=== PATIENT | male | born 2005 | race Caucasian/White ===

== ENCOUNTER 2023-01-11 20:40 | Emergency (ER) | payer OTHER, SELFPAY ==
[2023-01-11 20:49] VITALS: BP 111/72; PULSE 90; RESP 14; TEMP 36.8; O2SAT 99; BMI 22.7
--- NOTE | 2023-01-11 21:01 | ED.GENADULT ---
HPI - General Adult General Chief complaint: Psychiatric Problem/Disorder Stated complaint: Mental health Time Seen by Provider: 01/11/23 21:01 History of Present Illness HPI narrative: Pt brought here for eval by Mom for mental health. Mom found patient in bathtub at home with clothes on. Is being treated for depression and anxiety. Denies SI/HI, SIB. Mom denies hx of SIB, inpatient psych tx. 17-year-old accompanied by mom to the emergency department with concern of unusual behavior. Was found by mom in the bathtub with his clothes on. I question more about this event and does admit to more feelings of misery later today. Did ultimately ache can see why he got into the warm water with his clothes on but does admit that the sound of the water with soothing in he just did not want to take his clothes off. Does not feel that he wanted to . He does admit generally to be nice to shrink and be semi in visible. Has never engaged in self-harm behavior. Says has been feeling sad and diagnosed with depression and some anxiety over the last couple of years. Been treated for the last year and a half. Does have regular therapy visits on Tuesday and would be seeing his usual therapist tomorrow at [facility]. Also has a psychiatrist he says. Does have a job at [employer] which he enjoys well enough other than the occasional rude (my word) person. Denies any command hallucinations or any auditory or visual hallucinations otherwise. 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 Does enjoy playing video games. Feels he gets good sleep not staying up late playing games or other.f Related Data Home Medications Medication Instructions Recorded Confirmed escitalopram oxalate 10 mg tablet 10 mg PO DAILY 01/11/23 01/11/23 Allergies Allergy/AdvReac Type Severity Reaction Status Date / Time No Known Drug Allergies Allergy Verified 01/11/23 20:48 Review of Systems Status of ROS: Reports: 6 or more systems reviewed and unremarkable except as noted in History and below [facility] Social History Smoking Status: Never smoker How often do you have a drink containing alcohol: never AUDIT-C Alcohol total score: 0 Non-prescribed substance use: denies use Exam Narrative: Exam Narrative: Hiding under a large black hoodie. Turned away from me. Does turn to look in my direction but never really makes eye contact. Weeks worth of stubble. Long here little disheveled. Picking at his hospital band. Answers slowly and methodically questions. Limited. Mood is depressed and affect congruent. No evidence of self-harm. Increasingly conversant over time of interview. Const: Vital Signs, click to edit/add: Vital Signs - 24 hr 01/11/23 20:49 Temperature 98.2 F Pulse Rate [Pulse Oximeter] 90 Respiratory Rate 14 Blood Pressure [Ri ght Upper Arm] 111/72 Pulse Oximetry 99 Oxygen Delivery Me thod Room Air Documenting provider has reviewed patient's vital signs: yes Course Vital Signs Vital signs: Initial Vital Signs Temperature 98.2 F 01/11/23 20:49 Temperature Source Temporal Artery Scan 01/11/23 20:49 Pulse Rate 90 01/11/23 20:49 Pulse Rhythm Regular 01/11/23 20:49 Respiratory Rate 14 01/11/23 20:49 Blood Pressure 111/72 01/11/23 20:49 Blood Pressure Mean 85 01/11/23 20:49 Blood Pressure Position Sitting 01/11/23 20:49 Pulse Oximetry 99 01/11/23 20:49 Oxygen Delivery Method Room Air 01/11/23 20:49 Vital Signs Temperature 98.2 F 01/11/23 20:49 Pulse Rate 90 01/11/23 20:49 Respiratory Rate 14 01/11/23 20:49 Blood Pressure 111/72 01/11/23 20:49 Pulse Oximetry 99 01/11/23 20:49 Oxygen Delivery Method Room Air 01/11/23 20:49 Temperature 98.2 F 01/11/23 20:49 Pulse Rate 90 01/11/23 20:49 Respiratory Rate 14 01/11/23 20:49 Blood Pressure 111/72 01/11/23 20:49 Pulse Oximetry 99 01/11/23 20:49 Oxygen Delivery Method Room Air 01/11/23 20:49 Medical Decision Making MDM Narrative Medical decision making narrative: I did offer dec assessment. Might be beneficial to talk to somebody else mom in agreement. I do not think is suicidal nor particularly interested in self-harm. May be undiagnosed on the spectrum. DEC ([facility]) affirms safe for discharge also reassured that has close follow-up cares. See patient discharge plan Discharge Plan Discharge Clinical Impression: Depression Patient Disposition: Home w/ Parent or Adult Condition: Improved Additional Instructions: Thanks for talking with us here tonight. Remember to keep talking with your parents; they want to help. Baths are nice wait to relax. Please make that appointment tomorrow with your therapist. Think about planning something fun to do this coming week with your parents, maybe friends. If after talking to your therapist, psychiatrist, parents you might yet be feeling unsafe, please return to the emergency department. Prescriptions: No Action escitalopram oxalate 10 mg tablet 10 mg PO DAILY Follow Up/Referrals: Shayy Hernandez MD [Primary Care Provider] - Stand Alone Forms: [employer] Info Instructions
--- NOTE | 2023-01-11 22:29 | PC.NURSE ---
patient talking to dec/ mom in room with patient
--- NOTE | 2023-01-11 23:27 | PC.NURSE ---
patient DC accompanied by mother, patient states he feels safe to DC home and stated understanding to all DC instructions
== END 2023-01-11 23:29 | disposition home or self-care (01) ==
PROVIDERS: Emergency Provider Family Medicine; PCP Family Medicine
DX: F32.A Depression, unspecified (principal)
CPT/HCPCS: 99283; 99284

== ENCOUNTER 2024-06-29 08:30 | Outpatient (RCR) | payer OTHER, SELFPAY | END 2024-06-29 10:47 | disposition home or self-care (01) | PROVIDERS: PCP Family Medicine; Visit Provider Family Medicine | DX: M54.50 Low back pain, unspecified (principal); M79.604 Pain in right leg; M79.605 Pain in left leg; M21.70 Unequal limb length (acquired), unspecified site; Z51.89 Encounter for other specified aftercare | CPT/HCPCS: 97110; 97162; 97530 ==